=== PATIENT | male | born 1950 | race Caucasian/White ===

== ENCOUNTER 2017-10-19 15:48 | Inpatient (IN) ==
[2017-10-19] MEDS ORDERED: ONDANSETRON 4 MG/2 ML VIAL IV PRN (16:00)
[2017-10-19] MEDS ORDERED: MAGNESIUM HYDROXIDE SUSP 30 ML UDCUP PO PRN (16:05)
[2017-10-19] MEDS ORDERED: DEXTROSE 50% 25 GM/50 ML VIAL IV PRN (16:05)
[2017-10-19] MEDS ORDERED: GLUCAGON 1 MG VIAL IM PRN (16:05)
[2017-10-19] MEDS: PIPERACILLIN/TAZOBACTAM 3,375 MG in SODIUM CHLORIDE 0.9% 100 ML IV SCH (17:37)
[2017-10-19] MEDS: SODIUM CHLORIDE 0.45% 1,000 ML IV SCH (17:37)
[2017-10-19 19:03] LABS: Basophils % 0.2 % (0.0-0.8); Eosinophils % 0.1 % (0.00-10.9); Hematocrit 38.2 VOL% (42.0-52.0); Hemoglobin 12.9 GM/DL (14.0-18.0); Immature Granulocytes % 0.5 %; Immature Granulocytes Absolute 0.07 #; Lymphocytes % 13.2 % (21.2-54.2); Mean Corpuscular HGB Conc 33.8 GM/DL (32-36); Mean Corpuscular Hemoglobin 31 PG (27-34); Mean Corpuscular Volume 90.3 FL (87-102); Mean Platelet Volume 9.6 FL (9.6-12.0); Monocytes # 1.1 10*3/uL (0.11-0.8); Monocytes % 7.4 % (1.7-12.7); Neutrophils # 11.9 10*3/uL (1.4-7.4); Neutrophils % 78.6 % (38.7-73.9); Platelet Count 233 T/CUMM (130-400); Red Blood Count 4.23 MC/CUMM (3.8-5.5); Red Cell Distribution Width 13.9 % (9.3-17.3); White Blood Count 15.2 T/CUMM (4-12)
[2017-10-19 19:31] LABS: Albumin 3.4 G/DL (3.4-5.0); Bilirubin,Total 0.8 MG/DL (0.2-1.0); Potassium 4.8 MMOL/L (3.5-5.1); Total Protein 7.8 G/DL (6.4-8.3)
[2017-10-19] MEDS: MAGNESIUM GLUCONATE 500 MG TABLET PO SCH (21:15)
[2017-10-19] MEDS: LOVASTATIN 20 MG TABLET PO SCH (21:16)
[2017-10-19] MEDS: OMEGA 3 ACID ETHYL ESTERS 1 GM CAPSULE PO SCH (21:16)
[2017-10-19] MEDS: ENOXAPARIN 40 MG/0.4 ML SYRINGE SUBCUT SCH (21:17)
[2017-10-19] MEDS: CITALOPRAM 40 MG TABLET PO SCH (21:17)
[2017-10-19] MEDS ORDERED: traMADol 50 MG TABLET PO PRN (21:34)
[2017-10-19] MEDS: VANCOMYCIN INJ 1,500 MG in SODIUM CHLORIDE 0.9% 500 ML IV SCH (21:49)
[2017-10-19 22:11] LABS: Apearance,Urine CLEAR (Clear); Bilirubin,Urine Negative (Negative); Blood, Urine Negative (Negative); Glucose,Urine (UA) >=500 mg/dL (Negative); Hyaline Casts,Urine 1 /LPF (0-3); Ketones,Urine Negative (Negative); Mucus,Urine Occasional /LPF (Occasional); Nitrite,Urine Negative (Negative); Protein,Urine Negative; Squamous Epithelial Cell,Urine Occasional /HPF (0-10); Urine Color Yellow (Yellow); Urine Urobilinogen < 2.0 EU/DL (0.2-1.0); WBC,Urine 1 /HPF (0-6)
[2017-10-19] MEDS: INSULIN LISPRO 100 UNIT/ML SUBCUT SCH (22:58)
[2017-10-20] MEDS: ACETAMINOPHEN 325 MG TABLET PO PRN ×2 (01:26→18:11)
[2017-10-20] MEDS: PIPERACILLIN/TAZOBACTAM 3,375 MG in SODIUM CHLORIDE 0.9% 100 ML IV SCH ×3 (01:28→18:13)
[2017-10-20 05:44] LABS: Basophils # 0.1 10*3/uL (0.0-0.2); Basophils % 0.3 % (0.0-0.8); Eosinophils % 0.1 % (0.00-10.9); Hematocrit 34.8 VOL% (42.0-52.0); Hemoglobin 11.3 GM/DL (14.0-18.0); Immature Granulocytes % 0.4 %; Immature Granulocytes Absolute 0.06 #; Lymphocytes # 2.3 10*3/uL (1.4-4.0); Lymphocytes % 14.3 % (21.2-54.2); Mean Corpuscular HGB Conc 32.5 GM/DL (32-36); Mean Corpuscular Hemoglobin 31 PG (27-34); Mean Corpuscular Volume 93.8 FL (87-102); Mean Platelet Volume 9.7 FL (9.6-12.0); Monocytes # 1.3 10*3/uL (0.11-0.8); Neutrophils # 12.3 10*3/uL (1.4-7.4); Neutrophils % 76.9 % (38.7-73.9); Platelet Count 198 T/CUMM (130-400); Red Blood Count 3.71 MC/CUMM (3.8-5.5); Red Cell Distribution Width 13.7 % (9.3-17.3)
[2017-10-20 06:13] LABS: Free T4 (Free Thyroxine) 1.07 NG/DL (0.76-1.46); Thyroid Stimulating Hormone 1.62 uIU/ml (0.358-3.74)
[2017-10-20 06:14] LABS: Calcium 8.4 MG/DL (8.5-10.1); Potassium 4.2 MMOL/L (3.5-5.1); Risk Ratio 2.18
[2017-10-20] MEDS: SODIUM CHLORIDE 0.45% 1,000 ML IV SCH ×2 (08:11→08:27)
[2017-10-20] MEDS: INSULIN LISPRO 100 UNIT/ML SUBCUT SCH ×4 (08:27→21:00)
[2017-10-20] MEDS: glyBURIDE/METFORMIN 5-500 MG TABLET PO SCH ×2 (09:59→16:52)
[2017-10-20] MEDS: OMEGA 3 ACID ETHYL ESTERS 1 GM CAPSULE PO SCH ×3 (10:02→20:54)
[2017-10-20] MEDS: PANTOPRAZOLE 40 MG TABLET PO SCH (10:02)
[2017-10-20] MEDS: LOSARTAN 50 MG TABLET PO SCH (10:02)
[2017-10-20] MEDS: TRANDOLAPRIL 2 MG TABLET PO SCH (10:02)
[2017-10-20] MEDS: MAGNESIUM GLUCONATE 500 MG TABLET PO SCH ×2 (10:02→20:54)
[2017-10-20] MEDS: ASPIRIN EC 325 MG TABLET PO SCH (10:03)
[2017-10-20] MEDS: PIOGLITAZONE 15 MG TABLET PO SCH (10:03)
[2017-10-20] MEDS: VERAPAMIL SR 240 MG TABLET PO SCH (10:03)
[2017-10-20] MEDS ORDERED: LIDOCAINE 1% 20 ML VIAL ONE (10:49)
[2017-10-20] MEDS ORDERED: MIDAZOLAM 2 MG/2 ML VIAL ONE (12:22)
[2017-10-20] MEDS ORDERED: PROPOFOL 200 MG/20 ML VIAL IV ONE (12:22)
[2017-10-20] MEDS ORDERED: KETAMINE 500 MG/10 ML VIAL ONE (12:23)
[2017-10-20] MEDS ORDERED: SODIUM CHLORIDE 0.9% 100 ML IV ONE (12:23)
[2017-10-20] MEDS: VANCOMYCIN INJ 1,500 MG in SODIUM CHLORIDE 0.9% 500 ML IV SCH (15:04)
[2017-10-20] MEDS: LOVASTATIN 20 MG TABLET PO SCH (20:54)
[2017-10-20] MEDS: CITALOPRAM 40 MG TABLET PO SCH (20:54)
[2017-10-20] MEDS: ENOXAPARIN 40 MG/0.4 ML SYRINGE SUBCUT SCH (21:00)
[2017-10-21] MEDS: PIPERACILLIN/TAZOBACTAM 3,375 MG in SODIUM CHLORIDE 0.9% 100 ML IV SCH ×3 (01:17→17:31)
[2017-10-21] MEDS: SODIUM CHLORIDE 0.45% 1,000 ML IV SCH ×4 (04:25→22:18)
[2017-10-21 07:13] LABS: Basophils % 0.3 % (0.0-0.8); Eosinophils # 0.2 10*3/uL (0.0-0.87); Eosinophils % 1.5 % (0.00-10.9); Hematocrit 34.9 VOL% (42.0-52.0); Hemoglobin 11.4 GM/DL (14.0-18.0); Immature Granulocytes % 0.6 %; Immature Granulocytes Absolute 0.06 #; Lymphocytes # 1.5 10*3/uL (1.4-4.0); Lymphocytes % 14.3 % (21.2-54.2); Mean Corpuscular HGB Conc 32.7 GM/DL (32-36); Mean Corpuscular Hemoglobin 30 PG (27-34); Mean Corpuscular Volume 92.3 FL (87-102); Mean Platelet Volume 9.3 FL (9.6-12.0); Monocytes # 0.8 10*3/uL (0.11-0.8); Monocytes % 8.3 % (1.7-12.7); Neutrophils # 7.6 10*3/uL (1.4-7.4); Platelet Count 202 T/CUMM (130-400); Red Blood Count 3.78 MC/CUMM (3.8-5.5); Red Cell Distribution Width 13.6 % (9.3-17.3); White Blood Count 10.1 T/CUMM (4-12)
[2017-10-21 07:29] LABS: Calcium 8.4 MG/DL (8.5-10.1); Osmolality,Calculated 273.8 MOS/KG (273-304); Potassium 4.2 MMOL/L (3.5-5.1)
[2017-10-21] MEDS: INSULIN LISPRO 100 UNIT/ML SUBCUT SCH ×4 (07:59→20:38)
[2017-10-21] MEDS: VANCOMYCIN INJ 1,500 MG in SODIUM CHLORIDE 0.9% 500 ML IV SCH (08:35)
[2017-10-21] MEDS: glyBURIDE/METFORMIN 5-500 MG TABLET PO SCH ×2 (10:43→16:35)
[2017-10-21] MEDS: PIOGLITAZONE 15 MG TABLET PO SCH (10:44)
[2017-10-21] MEDS ORDERED: LIDOCAINE 1% 20 ML VIAL ONE (11:38)
[2017-10-21] MEDS: OMEGA 3 ACID ETHYL ESTERS 1 GM CAPSULE PO SCH ×3 (11:51→20:08)
[2017-10-21] MEDS ORDERED: BUPIVACAINE MPF 0.25% 30 ML VIAL ONE (11:53)
[2017-10-21] MEDS ORDERED: PROPOFOL 200 MG/20 ML VIAL IV ONE (13:07)
[2017-10-21] MEDS ORDERED: MIDAZOLAM 2 MG/2 ML VIAL ONE (13:08)
[2017-10-21] MEDS: ASPIRIN EC 325 MG TABLET PO SCH (14:45)
[2017-10-21] MEDS: MAGNESIUM GLUCONATE 500 MG TABLET PO SCH ×2 (14:45→20:07)
[2017-10-21] MEDS: LOSARTAN 50 MG TABLET PO SCH (14:45)
[2017-10-21] MEDS: VERAPAMIL SR 240 MG TABLET PO SCH (14:45)
[2017-10-21] MEDS: TRANDOLAPRIL 2 MG TABLET PO SCH (14:46)
[2017-10-21] MEDS: PANTOPRAZOLE 40 MG TABLET PO SCH (14:46)
[2017-10-21] MEDS: CITALOPRAM 40 MG TABLET PO SCH (20:07)
[2017-10-21] MEDS: LOVASTATIN 20 MG TABLET PO SCH (20:07)
[2017-10-21] MEDS: ENOXAPARIN 40 MG/0.4 ML SYRINGE SUBCUT SCH (20:08)
[2017-10-22] MEDS: PIPERACILLIN/TAZOBACTAM 3,375 MG in SODIUM CHLORIDE 0.9% 100 ML IV SCH ×3 (01:24→21:07)
[2017-10-22] MEDS: VANCOMYCIN INJ 1,500 MG in SODIUM CHLORIDE 0.9% 500 ML IV SCH (05:29)
[2017-10-22 06:51] LABS: Basophils % 0.4 % (0.0-0.8); Eosinophils # 0.3 10*3/uL (0.0-0.87); Eosinophils % 3.6 % (0.00-10.9); Hematocrit 33.6 VOL% (42.0-52.0); Hemoglobin 11.2 GM/DL (14.0-18.0); Immature Granulocytes % 0.4 %; Immature Granulocytes Absolute 0.03 #; Lymphocytes # 2.1 10*3/uL (1.4-4.0); Lymphocytes % 27.3 % (21.2-54.2); Mean Corpuscular HGB Conc 33.3 GM/DL (32-36); Mean Corpuscular Hemoglobin 30 PG (27-34); Mean Corpuscular Volume 90.1 FL (87-102); Monocytes # 0.7 10*3/uL (0.11-0.8); Monocytes % 8.9 % (1.7-12.7); Neutrophils # 4.5 10*3/uL (1.4-7.4); Neutrophils % 59.4 % (38.7-73.9); Platelet Count 226 T/CUMM (130-400); Red Blood Count 3.73 MC/CUMM (3.8-5.5); Red Cell Distribution Width 13.3 % (9.3-17.3); White Blood Count 7.5 T/CUMM (4-12)
[2017-10-22 07:23] LABS: Calcium 8.3 MG/DL (8.5-10.1); Osmolality,Calculated 274.7 MOS/KG (273-304); Potassium 4.2 MMOL/L (3.5-5.1)
[2017-10-22] MEDS: TRANDOLAPRIL 2 MG TABLET PO SCH (10:08)
[2017-10-22] MEDS: VERAPAMIL SR 240 MG TABLET PO SCH (10:09)
[2017-10-22] MEDS: ASPIRIN EC 325 MG TABLET PO SCH (10:09)
[2017-10-22] MEDS: MAGNESIUM GLUCONATE 500 MG TABLET PO SCH ×2 (10:09→21:09)
[2017-10-22] MEDS: glyBURIDE/METFORMIN 5-500 MG TABLET PO SCH ×2 (10:09→17:06)
[2017-10-22] MEDS: PANTOPRAZOLE 40 MG TABLET PO SCH (10:09)
[2017-10-22] MEDS: OMEGA 3 ACID ETHYL ESTERS 1 GM CAPSULE PO SCH ×3 (10:10→21:08)
[2017-10-22] MEDS: INSULIN LISPRO 100 UNIT/ML SUBCUT SCH ×4 (10:10→21:12)
[2017-10-22] MEDS: LOSARTAN 50 MG TABLET PO SCH (10:10)
[2017-10-22] MEDS: PIOGLITAZONE 15 MG TABLET PO SCH (10:10)
[2017-10-22] MEDS: SODIUM CHLORIDE 0.45% 1,000 ML IV SCH ×2 (12:39→17:15)
[2017-10-22] MEDS: CITALOPRAM 40 MG TABLET PO SCH (21:08)
[2017-10-22] MEDS: LOVASTATIN 20 MG TABLET PO SCH (21:09)
[2017-10-22] MEDS: ENOXAPARIN 40 MG/0.4 ML SYRINGE SUBCUT SCH (21:09)
[2017-10-23] MEDS: VANCOMYCIN INJ 1,500 MG in SODIUM CHLORIDE 0.9% 500 ML IV SCH ×2 (00:44→13:43)
[2017-10-23] MEDS: PIPERACILLIN/TAZOBACTAM 3,375 MG in SODIUM CHLORIDE 0.9% 100 ML IV SCH ×2 (03:01→09:18)
[2017-10-23 06:11] LABS: Calcium 8.2 MG/DL (8.5-10.1); Osmolality,Calculated 281.1 MOS/KG (273-304)
[2017-10-23] MEDS: INSULIN LISPRO 100 UNIT/ML SUBCUT SCH ×4 (09:22→22:17)
[2017-10-23] MEDS: SODIUM CHLORIDE 0.45% 1,000 ML IV SCH ×4 (09:22→16:54)
[2017-10-23] MEDS: LOSARTAN 50 MG TABLET PO SCH (09:24)
[2017-10-23] MEDS: VERAPAMIL SR 240 MG TABLET PO SCH (09:25)
[2017-10-23] MEDS: MAGNESIUM GLUCONATE 500 MG TABLET PO SCH ×2 (09:25→22:13)
[2017-10-23] MEDS: PANTOPRAZOLE 40 MG TABLET PO SCH (09:25)
[2017-10-23] MEDS: TRANDOLAPRIL 2 MG TABLET PO SCH (09:25)
[2017-10-23] MEDS: glyBURIDE/METFORMIN 5-500 MG TABLET PO SCH ×2 (09:25→16:52)
[2017-10-23] MEDS: ASPIRIN EC 325 MG TABLET PO SCH (09:25)
[2017-10-23] MEDS: OMEGA 3 ACID ETHYL ESTERS 1 GM CAPSULE PO SCH ×3 (09:25→22:13)
[2017-10-23] MEDS: PIOGLITAZONE 15 MG TABLET PO SCH (09:25)
[2017-10-23] MEDS: LEVOFLOXACIN 500 MG TABLET PO SCH (13:42)
[2017-10-23] MEDS: CITALOPRAM 40 MG TABLET PO SCH (22:14)
[2017-10-23] MEDS: LOVASTATIN 20 MG TABLET PO SCH (22:14)
[2017-10-23] MEDS: ENOXAPARIN 40 MG/0.4 ML SYRINGE SUBCUT SCH (22:17)
[2017-10-24] MEDS: VANCOMYCIN INJ 1,500 MG in SODIUM CHLORIDE 0.9% 500 ML IV SCH ×2 (01:45→15:02)
[2017-10-24] MEDS: SODIUM CHLORIDE 0.45% 1,000 ML IV SCH ×2 (06:24→15:02)
[2017-10-24] MEDS: INSULIN LISPRO 100 UNIT/ML SUBCUT SCH ×2 (07:37→12:20)
[2017-10-24] MEDS: ASPIRIN EC 325 MG TABLET PO SCH (09:41)
[2017-10-24] MEDS: PIOGLITAZONE 15 MG TABLET PO SCH (09:41)
[2017-10-24] MEDS: MAGNESIUM GLUCONATE 500 MG TABLET PO SCH (09:41)
[2017-10-24] MEDS: PANTOPRAZOLE 40 MG TABLET PO SCH (09:41)
[2017-10-24] MEDS: VERAPAMIL SR 240 MG TABLET PO SCH (09:41)
[2017-10-24] MEDS: glyBURIDE/METFORMIN 5-500 MG TABLET PO SCH (09:41)
[2017-10-24] MEDS: OMEGA 3 ACID ETHYL ESTERS 1 GM CAPSULE PO SCH (09:41)
[2017-10-24] MEDS: TRANDOLAPRIL 2 MG TABLET PO SCH (09:41)
[2017-10-24] MEDS: LOSARTAN 50 MG TABLET PO SCH (09:42)
[2017-10-24 12:00] VITALS: BP 127/70
[2017-10-24] MEDS: LEVOFLOXACIN 500 MG TABLET PO SCH (14:36)
== END 2017-10-24 15:06 | disposition home health service (06) | DRG 617 ==
LOC: N.2E 16:44
PROVIDERS: ADMIT Family Medicine; ATTEND Family Medicine